=== PATIENT | male | born 1935 | race Caucasian/White ===

== ENCOUNTER 2021-07-06 16:35 | Inpatient (IN) | payer MEDICARE ==
[~2021-07-06] VITALS: Ht 172.7 cm; Wt 80.0 kg
[~2021-07-06 16:35] MED LIST: ACETAMINOPHEN325 MG PO; ASPIRIN EC81 MG PO; AUGMENTIN875 MG PO; CLOPIDOGREL75 MG PO; COLACE100 MG PO; ERTAPENEM IV; FLAGYL IV; LACTINEX1 EACH PO; MELATONIN1 MG PO; MOBIC7.5 MG PO; NORCO 5-325 TA1 EACH PO; PLENDIL **OUT O5 MG PO; PREDNISONE 5MG T5 MG PO; PROTONIX 40MG T40 MG PO; SYNTHROID88 MCG PO; ZOCOR40 MG PO; [UNRECOGNIZED DRUG - OTHER] IV
[2021-07-06 18:16] LABS: BASOPHIL 0.4 % (0-2); EOSINOPHIL 1.8 % (0-7); HCT 40.7 % (42.0-52.0); HGB 12.9 g/dl (13.2-18.0); MCH 30.5 pg (25.0-31.0); MCHC 31.7 g/dL (32.0-36.0); MCV 96.2 fL (78.0-100.0); MONOCYTE 4.3 % (0-12); NEUTROPHIL 86.9 % (41-80); NRBC 0; PLT 236 K/uL (150-400); RBC 4.23 M/uL (4.70-6.00); RDW 15.8 % (11.5-14.0); WBC 15.4 K/uL (4.0-10.5)
[2021-07-06 18:32] LABS: BILIRUBIN 2+ mg/dL (NEGATIVE); BLOOD NEGATIVE Ery/uL (NEGATIVE); CLARITY CLEAR (CLEAR); GLUCOSE (U) NORMAL (NORMAL); LEUKOCYTES NEGATIVE Leu/uL (NEGATIVE); NITRITE NEGATIVE (NEGATIVE); PROTEIN TRACE (LOW) mg/dL (NEGATIVE); SPECIFIC GRAVITY 1.025 (1.001-1.030)
[2021-07-06 18:39] LABS: COLOR AMBER (YELLOW)
[2021-07-06 18:42] LABS: ALBUMIN 2.8 g/dL (3.4-5.0); BILIRUBIN - TOTAL 1.1 mg/dL (0.2-1.0); BUN/CREAT RATIO (CALC) 22.6 RATIO; CREATININE 1.77 mg/dL (0.67-1.17); POTASSIUM 5.4 mmol/L (3.5-5.1); TOTAL PROTEIN 5.8 g/dL (6.4-8.2)
[2021-07-06 19:26] LABS: INR 1.98 (0.9-1.2); PROTHROMBIN TIME 21.7 SECONDS (11.8-13.4); PTT 41.6 SECONDS (24.4-34.7)
[2021-07-06 20:15] LABS: HCT 39.3 % (42.0-52.0); HGB 12.7 g/dL (13.2-18.0)
[2021-07-06 20:57] LABS: CKMB 35.1 ng/mL (0.0-3.6)
[2021-07-06] MEDS ORDERED: ELIQUIS5 MG PO (22:34)
[2021-07-06] MEDS ORDERED: CYMBALTA20 MG PO (22:35)
[2021-07-06] MEDS ORDERED: TOPROL XL 25MG25 MG PO (22:37)
[2021-07-06] MEDS ORDERED: GABAPENTIN600 MG PO (22:39)
[2021-07-07 00:03] LABS: MAGNESIUM 2.1 mg/dL (1.8-2.4); PHOSPHORUS 3.7 mg/dL (2.6-4.7)
[2021-07-07 07:20] LABS: BASOPHIL 0.6 % (0-2); EOSINOPHIL 7.8 % (0-7); HCT 42.2 % (42.0-52.0); HGB 13.5 g/dl (13.2-18.0); LYMPHOCYTE 7.3 % (15-48); MCH 30.4 pg (25.0-31.0); MONOCYTE 6.6 % (0-12); MPV 10.8 fL (6.0-9.5); NEUTROPHIL 77.2 % (41-80); NRBC 0; PLT 239 K/uL (150-400); RBC 4.44 M/uL (4.70-6.00); RDW 15.5 % (11.5-14.0); WBC 11.7 K/uL (4.0-10.5)
[2021-07-07 07:41] LABS: ALBUMIN 2.9 g/dL (3.4-5.0); BILIRUBIN - TOTAL 1.2 mg/dL (0.2-1.0); BUN/CREAT RATIO (CALC) 25.5 RATIO; CREATININE 1.41 mg/dL (0.67-1.17); POTASSIUM 4.4 mmol/L (3.5-5.1); TOTAL PROTEIN 5.9 g/dL (6.4-8.2)
[2021-07-07 07:43] LABS: CKMB 22.2 ng/mL (0.0-3.6)
--- NOTE | 2021-07-07 11:10 | NUR ---
Pt triggered for nutrition screen r/t information obtained from Nursing assessment. Pt triggered as geriatric surgical patient. nutrition will follow for any issues related to nutrition services. none identified at this time.
--- NOTE | 2021-07-07 13:52 | NUR ---
07/07/21 An interview was conducted with Aileen/Aileen Okeefe. He lives at home with his spouse. He has a wc, rollator, rw, 3in1, and s. chair. In order for Mr. Okeefe to return home, he must be able to negotiate 3 steps to enter the home and to get up / down from the toilet. - Will follow for Therapy recommendations. They selected [facility] if returning home and [facility] choice, if SNF is recommended.
[2021-07-08 06:29] LABS: BASOPHIL 0.4 % (0-2); EOSINOPHIL 9.2 % (0-7); HCT 40.1 % (42.0-52.0); LYMPHOCYTE 9.4 % (15-48); MCH 30.6 pg (25.0-31.0); MCHC 32.4 g/dL (32.0-36.0); MCV 94.4 fL (78.0-100.0); MONOCYTE 7.4 % (0-12); MPV 10.8 fL (6.0-9.5); NEUTROPHIL 73.1 % (41-80); NRBC 0; PLT 236 K/uL (150-400); RBC 4.25 M/uL (4.70-6.00); RDW 15.4 % (11.5-14.0); WBC 9.9 K/uL (4.0-10.5)
[2021-07-08 07:11] LABS: BUN/CREAT RATIO (CALC) 30.2 RATIO; CREATININE 1.16 mg/dL (0.67-1.17); POTASSIUM 4.6 mmol/L (3.5-5.1)
--- NOTE | 2021-07-08 15:02 | NUR ---
07/08/21 Therapy recommended SNF placement. [facility] has accepted patient for admission today. - Patient meets criteria for EMS transport per Dr. Monte. - Ms. Okeefe was provided with a list of sitter services for future reference.
[2021-07-09 03:14] LABS: BILIRUBIN NEGATIVE (NEGATIVE); BLOOD 2+ Ery/uL (NEGATIVE); CLARITY CLEAR (CLEAR); COLOR YELLOW (YELLOW); GLUCOSE (U) NORMAL (NORMAL); LEUKOCYTES NEGATIVE Leu/uL (NEGATIVE); NITRITE NEGATIVE (NEGATIVE); PROTEIN NEGATIVE (NEGATIVE)
[2021-07-09 03:26] LABS: BACTERIA 1+; SQUAMOUS EPITHELIAL CELLS RARE; URINARY RBC 20-50; URINARY WBC RARE
[2021-07-09 07:34] LABS: BASOPHIL 0.7 % (0-2); EOSINOPHIL 10.6 % (0-7); HCT 39.3 % (42.0-52.0); HGB 12.8 g/dl (13.2-18.0); LYMPHOCYTE 10.3 % (15-48); MCH 30.8 pg (25.0-31.0); MCHC 32.6 g/dL (32.0-36.0); MCV 94.5 fL (78.0-100.0); MONOCYTE 8.4 % (0-12); MPV 10.3 fL (6.0-9.5); NEUTROPHIL 69.4 % (41-80); NRBC 0; PLT 245 K/uL (150-400); RBC 4.16 M/uL (4.70-6.00); RDW 15.3 % (11.5-14.0); WBC 10.3 K/uL (4.0-10.5)
[2021-07-09 08:10] LABS: BUN/CREAT RATIO (CALC) 31.1 RATIO; CREATININE 1.06 mg/dL (0.67-1.17); POTASSIUM 4.5 mmol/L (3.5-5.1)
--- NOTE | 2021-07-09 12:34 | NUR ---
07/09/21 M/Aileen Okeefe have decided to go to [facility] opposed to [facility]. Crystal Liriano, [facility], has accepted patient. - [facility] was notified. - A report was given to NACHO Franco RN.
[2021-07-09] MEDS ORDERED: GABAPENTIN600 MG PO (13:47)
[2021-07-09] MEDS ORDERED: LOSARTAN POTASS25 MG PO (13:47)
[2021-07-09] MEDS ORDERED: NORCO 5-325 TA1 EACH PO (13:47)
== END 2021-07-09 17:05 | DRG 281 ==
LOC: FER 16:35 → FTCU 21:26
PROVIDERS: Emergency Medicine; Emergency Medicine Emergency Medical Services; Internal Medicine; Nurse Practitioner; ADMIT Internal Medicine
DX: I21.4 Non-ST elevation (NSTEMI) myocardial infarction (principal); S32.018A Other fracture of first lumbar vertebra, initial encounter for closed fracture; S32.512A Fracture of superior rim of left pubis, initial encounter for closed fracture; Z20.822 Contact with and (suspected) exposure to COVID-19; Z23 Encounter for immunization; I11.9 Hypertensive heart disease without heart failure; I48.0 Paroxysmal atrial fibrillation; E03.9 Hypothyroidism, unspecified; G30.9 Alzheimer's disease, unspecified; F02.80 Dementia in other diseases classified elsewhere, unspecified severity, without behavioral disturbance, psychotic disturbance, mood disturbance, and anxiety; I25.10 Atherosclerotic heart disease of native coronary artery without angina pectoris; S30.0XXA Contusion of lower back and pelvis, initial encounter; E78.5 Hyperlipidemia, unspecified; I73.9 Peripheral vascular disease, unspecified; K21.9 Gastro-esophageal reflux disease without esophagitis; W18.31XA Fall on same level due to stepping on an object, initial encounter; Y92.009 Unspecified place in unspecified non-institutional (private) residence as the place of occurrence of the external cause; Z88.5 Allergy status to narcotic agent; Z98.890 Other specified postprocedural states; Z91.013 Allergy to seafood
CPT/HCPCS: 36415; 70450; 71045; 71250; 72125; 72128; 72131; 80048; 80053; 80061; 81001; 81003; 82550; 82553; 83735; 83880; 84100; 84484; 85014; 85018; 85025; 85610; 85730; 87040; 87088; 93005; 93922; 94010; 97110; 97163; 97166; 97530-GP; 97535; G0008; J7040; J7512; U0002

== ENCOUNTER 2021-08-04 15:33 | Emergency (ER) | payer MEDICARE ==
[~2021-08-04 15:33] MED LIST changes: +CYMBALTA20 MG PO; +ELIQUIS5 MG PO; +GABAPENTIN600 MG PO; +LOSARTAN POTASS25 MG PO; +TOPROL XL 25MG25 MG PO
[2021-08-04 17:31] LABS: BASOPHIL 0.5 % (0-2); EOSINOPHIL 1.2 % (0-7); HGB 14.6 g/dl (13.2-18.0); LYMPHOCYTE 6.6 % (15-48); MCH 31.1 pg (25.0-31.0); MCHC 31.7 g/dL (32.0-36.0); MCV 98.1 fL (78.0-100.0); MONOCYTE 7.1 % (0-12); NRBC 0; PLT 336 K/uL (150-400); RBC 4.69 M/uL (4.70-6.00); RDW 15.4 % (11.5-14.0); WBC 14.3 K/uL (4.0-10.5)
[2021-08-04 17:49] LABS: BUN/CREAT RATIO (CALC) 20.2 RATIO; CREATININE 1.14 mg/dL (0.67-1.17); POTASSIUM 4.9 mmol/L (3.5-5.1)
[2021-08-04 18:13] LABS: LACTIC ACID 1.8 mmol/L (0.4-1.9)
[2021-08-04 18:40] LABS: BILIRUBIN NEGATIVE (NEGATIVE); BLOOD 3+ Ery/uL (NEGATIVE); CLARITY CLEAR (CLEAR); COLOR RED (YELLOW); GLUCOSE (U) NORMAL (NORMAL); LEUKOCYTES NEGATIVE Leu/uL (NEGATIVE); NITRITE NEGATIVE (NEGATIVE); PROTEIN TRACE (LOW) mg/dL (NEGATIVE); UROBILINOGEN 0.2 mg/dL (0.2-1.0)
[2021-08-04 18:42] LABS: URINARY RBC TNTC
[2021-08-04] MEDS ORDERED: FLOMAX0.4 MG PO (20:48)
== END 2021-08-04 21:30 | disposition home or self-care (01) ==
LOC: FER 15:33
PROVIDERS: Nurse Practitioner Family
DX: R31.9 Hematuria, unspecified (principal); I10 Essential (primary) hypertension; Z88.5 Allergy status to narcotic agent
CPT/HCPCS: 36415; 80048; 81001; 83605; 85025; 87040; J7030